=== PATIENT | male | born 1995 | race Caucasian/White ===

== ENCOUNTER 2018-10-31 10:33 | Emergency (ER) | payer OTHER | END 2018-10-31 17:51 | disposition left against medical advice (07) | LOC: E/R 10:33 | DX: R22.32 Localized swelling, mass and lump, left upper limb (principal); F17.210 Nicotine dependence, cigarettes, uncomplicated; F11.10 Opioid abuse, uncomplicated; R40.2142 Coma scale, eyes open, spontaneous, at arrival to emergency department; R40.2362 Coma scale, best motor response, obeys commands, at arrival to emergency department; R40.2252 Coma scale, best verbal response, oriented, at arrival to emergency department | CPT/HCPCS: 99283; Z7502 ==

== ENCOUNTER 2018-11-02 02:12 | Emergency (ER) | payer OTHER ==
[2018-11-02] MEDS: CEPHALEXIN 500 MG CAP PO (07:02)
[2018-11-02] MEDS: ACETAMINOPHEN 500 MG TAB PO (07:02)
[2018-11-02] MEDS: TRIMETHOPRIM/SULFAMETHOX (DS) TAB PO (07:02)
[2018-11-02] MEDS: LIDOCAINE 1% (MDV) 20 ML INJ SC (07:04)
== END 2018-11-02 08:10 | disposition home or self-care (01) ==
LOC: FTE 02:12
DX: L02.414 Cutaneous abscess of left upper limb (principal); F17.210 Nicotine dependence, cigarettes, uncomplicated
CPT/HCPCS: 10060; 99283-25

== ENCOUNTER 2018-11-26 00:07 | Emergency (ER) | payer SELFPAY, OTHER | END 2018-11-26 04:45 | disposition left against medical advice (07) | LOC: FTE 00:07 | DX: Z53.21 Procedure and treatment not carried out due to patient leaving prior to being seen by health care provider (principal) ==